=== PATIENT | male | born 1985 | race Caucasian/White ===

== ENCOUNTER 2021-04-15 17:25 | Emergency (ER) | payer OTHER ==
[~2021-04-15] VITALS: Ht 175.3 cm; Wt 108.9 kg
[2021-04-15 17:27] VITALS: BP 161/113
--- NOTE | 2021-04-15 17:30 | NUR ---
Patient to chair
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
[2021-04-15 17:45] VITALS: BP 161/113
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
== END 2021-04-15 17:45 | disposition home or self-care (01) ==
LOC: MED 17:25
DX: Z02.89 Encounter for other administrative examinations (principal); V89.2XXA Person injured in unspecified motor-vehicle accident, traffic, initial encounter; Y93.89 Activity, other specified; Y92.89 Other specified places as the place of occurrence of the external cause; Y99.8 Other external cause status
CPT/HCPCS: 99283